=== PATIENT | male | born 1985 | race Caucasian/White ===

== ENCOUNTER 2020-09-02 11:27 | Emergency (ER) | payer OTHER ==
[2020-09-02 11:34] VITALS: BP 106/70; PULSE 79; TEMP 98.2; BMI 25.1
== END 2020-09-02 17:02 | disposition home or self-care (01) ==
LOC: JER 11:27
DX: R10.33 Periumbilical pain (principal); Z98.890 Other specified postprocedural states
CPT/HCPCS: 74018-TC-FY; 76705-TC; 99285-25